=== PATIENT | female | born 1980 | race Two or more races ===

== ENCOUNTER 2017-06-26 12:53 | Outpatient (CLI) | payer OTHER | END 2017-06-26 13:07 | disposition home or self-care (01) | LOC: SONOGRAMA 12:53 → MAMO-SONO 13:15 | DX: N64.4 Mastodynia (principal); N60.11 Diffuse cystic mastopathy of right breast; N60.12 Diffuse cystic mastopathy of left breast ==

== ENCOUNTER 2017-07-14 14:11 | Outpatient (CLI) | payer OTHER | END 2017-07-14 14:24 | disposition home or self-care (01) | LOC: SONOGRAMA 14:11 | DX: N60.11 Diffuse cystic mastopathy of right breast (principal); N60.12 Diffuse cystic mastopathy of left breast; N63.23 Unspecified lump in the left breast, lower outer quadrant ==

== ENCOUNTER 2017-10-18 10:44 | Outpatient (CLI) | payer OTHER | END 2017-10-18 10:52 | disposition home or self-care (01) | LOC: SONOGRAMA 10:44 → MAMO-SONO 11:15 | DX: R10.2 Pelvic and perineal pain (principal) ==

== ENCOUNTER 2018-07-06 17:59 | Outpatient (CLI) | payer OTHER | END 2018-07-06 18:19 | disposition home or self-care (01) | LOC: RAD 17:59 | DX: M54.2 Cervicalgia (principal); M54.5 Low back pain ==

== ENCOUNTER 2018-09-09 12:19 | Outpatient (CLI) | payer OTHER | END 2018-09-09 12:42 | disposition home or self-care (01) | LOC: MAMO-SONO 12:19 | DX: N60.19 Diffuse cystic mastopathy of unspecified breast (principal); Z12.31 Encounter for screening mammogram for malignant neoplasm of breast ==

== ENCOUNTER 2018-10-29 09:21 | Outpatient (CLI) | payer OTHER | END 2018-10-29 09:26 | disposition home or self-care (01) | LOC: MRI 09:21 | DX: M54.5 Low back pain (principal); M54.16 Radiculopathy, lumbar region | CPT/HCPCS: 72148 ==

== ENCOUNTER 2018-12-13 09:57 | Emergency (ER) | payer OTHER ==
[~2018-12-13] VITALS: Ht 152.4 cm; Wt 76.2 kg
[2018-12-13] MEDS ORDERED: METFORMIN HCL500 MG (10:11)
== END 2018-12-13 11:33 | disposition home or self-care (01) ==
LOC: ER 09:57
DX: R10.11 Right upper quadrant pain (principal); R07.89 Other chest pain

== ENCOUNTER → 2018-12-26 | Outpatient (CLI) | payer OTHER ==
[~2018-12-26] MED LIST: METFORMIN HCL500 MG
== END | disposition home or self-care (01) ==
LOC: MAMO-SONO 08:15 → SONOGRAMA 08:26
DX: K81.0 Acute cholecystitis (principal); E78.1 Pure hyperglyceridemia

== ENCOUNTER 2020-05-04 11:40 | Outpatient (CLI) | payer OTHER | END 2020-05-04 11:56 | disposition home or self-care (01) | LOC: LAB 11:40 | PROVIDERS: ATTEND Surgery | DX: I10 Essential (primary) hypertension (principal); D64.89 Other specified anemias; D68.8 Other specified coagulation defects; N39.0 Urinary tract infection, site not specified; E04.1 Nontoxic single thyroid nodule; E78.2 Mixed hyperlipidemia; Z20.828 Contact with and (suspected) exposure to other viral communicable diseases; E11.00 Type 2 diabetes mellitus with hyperosmolarity without nonketotic hyperglycemic-hyperosmolar coma (NKHHC) ==

== ENCOUNTER 2020-05-05 06:56 | Day surgery (SDC) | payer OTHER | END 2020-05-05 16:50 | disposition home or self-care (01) | LOC: CIR.AMB 06:56 | PROVIDERS: ATTEND Surgery | DX: D24.2 Benign neoplasm of left breast (principal); Z20.828 Contact with and (suspected) exposure to other viral communicable diseases ==